=== PATIENT | male | born 1985 | race Caucasian/White ===

== ENCOUNTER 2017-12-23 20:57 | Emergency (ER) | END 2017-12-24 02:12 | disposition home or self-care (01) ==

== ENCOUNTER 2019-03-17 16:14 | Emergency (ER) | payer OTHER ==
[~2019-03-17] VITALS: Ht 182.9 cm; Wt 91.9 kg
[~2019-03-17 16:14] MED LIST: OMEP20CA16 PO; OMEP40CA6 PO; RANI150T35 PO
[2019-03-17 16:19] VITALS: BP 143/83; PULSE 62; RESP 16; Ht 182.9 cm; Wt 91.9 kg
[2019-03-17] MEDS ORDERED: FAMOTIDINE 20 MG TAB PO ONE (17:00)
[2019-03-17] MEDS ORDERED: LIDOCAINE/MYLANTA 40 ML BTL PO ONE (17:00)
== END 2019-03-17 17:12 | disposition home or self-care (01) ==
LOC: FTE 16:14
DX: K29.00 Acute gastritis without bleeding (principal)
CPT/HCPCS: Z7502; Z7610; 99283